=== PATIENT | male | born 1955 | race Caucasian/White ===

== ENCOUNTER → 2018-08-12 | Outpatient (CLI) | payer BC ==
[~2018-08-12] MED LIST: BUPIVACAINE MPF 0.25% 10 ML VIAL. ONE; IOHEXOL 300 MG/ML 50 ML VIAL. ONE; LIDOCAINE 1% PF 30 ML VIAL. ONE; methylPREDNISolone ACETATE 40 MG/ML VIAL. ONE
== END | disposition home or self-care (01) ==
LOC: SURG 13:14
PROVIDERS: ATTEND Anesthesiology
DX: M46.1 Sacroiliitis, not elsewhere classified (principal); M16.12 Unilateral primary osteoarthritis, left hip; M48.061 Spinal stenosis, lumbar region without neurogenic claudication; M54.16 Radiculopathy, lumbar region; I10 Essential (primary) hypertension; M19.90 Unspecified osteoarthritis, unspecified site; Z88.0 Allergy status to penicillin; Z79.899 Other long term (current) drug therapy; Z98.890 Other specified postprocedural states; E66.9 Obesity, unspecified; Z90.49 Acquired absence of other specified parts of digestive tract
CPT/HCPCS: 20610; 27096; 77002; J1030; J2001; J3490; Q9967; 20611

== ENCOUNTER → 2020-09-13 | Outpatient (CLI) | payer MEDICARE, BC ==
--- NOTE | 2020-09-13 15:42 | RAD ---
PQRS Compliance Statement: One or more of the following individualized dose reduction techniques were utilized for this examinat ion: 1. Automated exposure control 2. Adjustment of the mA and/or kV according to patient size 3. Use of iterative reconstruction technique CT THORAX WO Clinical Indication: Reason: HX OF INFECTION/LEUKOCYTOSIS, PNEUMONIA X 3 MONTHS, SOB / Comparison: None. TECHNIQUE: Helical CT imaging of the chest is performed without IV contrast. Findings: There is moderate right and mild left gynecomastia. There are several subcentimeter mediastinal lymph nodes. There are small calcified bilateral hilar and subcarinal lymph nodes. There is aneurysm of th e ascending thoracic aorta, diameter is 4.7 cm. The pulmonary trunk is dilated measuring 4.4 cm. The cardiac size is normal, no pericardial effusion. There is no pleural abnormality. There is biapical paraseptal emphysema. There is mild bronchiectasis and there are moderate reticular opacities throughout the lungs. There is no basilar honeycombing. T here are scattered calcified granulomas. There is a noncalcified nodule in the superior segment of th e right lower lobe laterally that abuts the major fissure. The nodule measures 1.4 cm AP by 1.2 cm tr ansverse by 0.9 cm craniocaudal. There is a mildly lobular soft tissue nodule in the lateral right up per lobe measuring 1.1 cm AP by 1.2 cm transverse by 0.9 cm craniocaudal. The visualized upper abdomen is unremarkable. There is degenerative endplate spurring of the thoracic spine. The alignment is maintained. IMPRESSION: 1. There are 2 noncalcified, soft tissue density pulmonary nodules in the right lung. The nodule siz e is amenable, recommend FDG PET/CT skull base to upper thighs for further evaluation. 2. There are findings of pulmonary fibrosis. There is no basilar honeycombing. 3. Aneurysm of the ascending thoracic aorta. Pulmonary trunk is dilated suggesting pulmonary arteria l hypertension. Electronically signed by: Dusty Monson MD (09/13/2020 3:39 PM) [id number]
== END ==
LOC: CT 10:29
PROVIDERS: ATTEND Family Medicine
DX: R91.8 Other nonspecific abnormal finding of lung field (principal); J84.10 Pulmonary fibrosis, unspecified; I71.2 Thoracic aortic aneurysm, without rupture; D72.829 Elevated white blood cell count, unspecified; Z86.19 Personal history of other infectious and parasitic diseases
CPT/HCPCS: 71250